=== PATIENT | female | born 1990 | race Caucasian/White ===

== ENCOUNTER 2023-08-01 19:40 | Inpatient (IN) | payer BC ==
[~2023-08-01] VITALS: Ht 165.1 cm; Wt 89.8 kg
[2023-08-01] MEDS ORDERED: MORPHINE SULFATE 4 MG/ML CPJ (NOT FOR IM USE) IV STA (19:56)
[2023-08-01] MEDS ORDERED: TETANUS, DIPHTHERIA, PERTUSSIS VAC/PF 0.5ML (>10YR OLD) IM ONE (20:00)
[2023-08-01] MEDS ORDERED: CEFAZOLIN 1000MG PREMIX 50 ML IV ONE (20:00)
[2023-08-01] MEDS ORDERED: SODIUM CHLORIDE 0.9% 1,000 ML IV ONE (20:00)
[2023-08-01] MEDS ORDERED: KETAMINE HCL 50 MG/ML 10ML IV ONE (20:00)
[2023-08-01] MEDS ORDERED: CEFAZOLIN 2,000 MG in DEXT 5% WATER 100 ML IV STA (21:00)
[2023-08-01 21:33] LABS: BASOPHILS % 0.2 % (0.0-2.0); EOSINOPHILS % 0.9 % (0.0-5.0); HEMATOCRIT. 40.2 % (36.0-48.0); HEMOGLOBIN. 13.9 g/dL (12.0-16.0); LYMPHOCYTES % 21.3 % (20.0-50.0); MEAN CORPUSCULAR HEMOGLOBIN 31.4 pg (28.0-32.0); MEAN CORPUSCULAR HGB CONC 34.6 g/dL (31.0-37.0); MEAN CORPUSCULAR VOLUME 90.7 fL (81.0-99.0); MEAN PLATELET VOLUME 8.5 fl (7.4-10.4); MONOCYTES % 8.5 % (2.0-8.0); NEUTROPHILS % 69.1 % (40.0-76.0); PLATELET 205 x1000/uL (130-400); RED BLOOD CELL COUNT 4.43 mill/uL (4.2-5.4); WHITE BLOOD COUNT 8.4 x1000/uL (4.5-11.0)
[2023-08-01 21:41] VITALS: O2SAT 100
[2023-08-01 21:43] LABS: CHLORIDE 110 mEq/L (98-107); INDEX HEMOLYSI 1 (1-3); INDEX ICTERIC 1 (1-4); INDEX LIPEMIC 1 (1-3); POTASSIUM 3.7 mEq/L (3.5-5.1); SODIUM 140 mEq/L (136-145)
[2023-08-01 21:44] LABS: HCG SCREEN NEGATIVE
[2023-08-01 21:49] LABS: ALANINE AMINOTRANSFERASE 30 IU/L (13-61); ALBUMIN 3.8 g/dL (3.4-5.0); ASPARTATE AMINOTRANSFERASE 14 IU/L (15-37); BILIRUBIN TOTAL 0.5 mg/dL (0.1-1.0); CALCIUM 8.5 mg/dL (8.5-10.1); CARBON DIOXIDE 24 mEq/L (21-32); CREATININE 0.8 mg/dL (0.6-1.3); GLUCOSE 101 mg/dL (70-105); PROTEIN TOTAL 7.7 g/dL (6.0-8.3); UREA NITROGEN BLOOD 15 mg/dL (7-21)
[2023-08-01] MEDS ORDERED: MORPHINE SULFATE 4 MG/ML CPJ (NOT FOR IM USE) IV PRN (22:45)
[2023-08-02] MEDS ORDERED: NALOXONE HCL 0.4MG/ML VIAL IV PRN (01:00)
[2023-08-02 01:10] VITALS: BP 113/76; PULSE 76; RESP 18; TEMP 98.1
[2023-08-02] MEDS: HYDROCODONE/ACETAMINOPHEN 10/325MG TABLET PO PRN (02:31)
[2023-08-02] MEDS ORDERED: MORPHINE SULFATE 2 MG/ML CPJ (NOT FOR IM USE) IV NR (11:45)
[2023-08-02] MEDS ORDERED: CEFAZOLIN SODIUM 1000MG/VIAL ONE (15:33)
[2023-08-02] MEDS ORDERED: MIDAZOLAM HCL 2 MG/2 ML VIAL ONE (15:33)
[2023-08-02] MEDS ORDERED: FENTANYL CITRATE/PF 50MCG/ML 2ML VIAL ONE (15:33)
[2023-08-02] MEDS ORDERED: PROPOFOL 200MG/20ML VIAL IV ONE (15:33)
[2023-08-02 16:00] VITALS: BP 108/76; PULSE 81; RESP 20; TEMP 97.7
[2023-08-02] MEDS ORDERED: VANCOMYCIN HCL 1 GM/VIAL ONE (16:06)
[2023-08-02] MEDS ORDERED: POLYMYXIN B SULFATE 500000 UNITS/VIAL ONE (16:06)
[2023-08-02] MEDS ORDERED: GENTAMICIN SULF 40MG/ML 2ML VIAL ONE (16:07)
[2023-08-02] MEDS ORDERED: LIDOCAINE HCL/EPINEPHRINE 1%-EPI 1:100,000 20 ML VIAL ONE (16:07)
[2023-08-02] MEDS ORDERED: BUPIVACAINE HCL/PF 0.5% (5MG/ML) 10ML ONE (16:07)
[2023-08-02] MEDS ORDERED: PHENYLEPHRINE HCL 10 MG/ML 1ML (IV VIAL) IV ONE (17:08)
[2023-08-02] MEDS: HYDROMORPHONE HCL/PF 2MG/ML CPJ IV PRN ×3 (20:13→20:40)
[2023-08-02] MEDS: CEFAZOLIN 2,000 MG in DEXT 5% WATER 100 ML IV SCH (21:00)
[2023-08-03] VITALS: BP 103/60; PULSE 84; RESP 17; TEMP 99.5
[2023-08-03 04:00] VITALS: BP 110/63; PULSE 86; RESP 17; TEMP 99.9
[2023-08-03] MEDS: CEFAZOLIN 2,000 MG in DEXT 5% WATER 100 ML IV SCH ×2 (05:00→12:18)
[2023-08-03 08:11] VITALS: BP 105/62; PULSE 80; RESP 18; TEMP 100.4
[2023-08-03] MEDS ORDERED: ASPIRIN 81MG TABLET PO SCH (09:00)
[2023-08-03] MEDS ORDERED: ASPI-1406 MT (10:17)
[2023-08-03] MEDS ORDERED: CEPH500C2 MT (10:17)
[2023-08-03] MEDS ORDERED: ACET-2708 MT (10:18)
[2023-08-03] MEDS: HYDROCODONE/ACETAMINOPHEN 10/325MG TABLET PO PRN ×2 (10:57→15:15)
[2023-08-03] MEDS ORDERED: HYDR-4001 MT (11:30)
[2023-08-03 12:30] VITALS: BP 113/55; PULSE 95; RESP 18; TEMP 98
[2023-08-03 17:07] VITALS: BP 135/73; PULSE 66; RESP 18; TEMP 98
[2023-08-03 17:09] VITALS: BP 100/50; PULSE 91; RESP 18; TEMP 98
== END 2023-08-03 15:24 | disposition home or self-care (01) | DRG 494 ==
LOC: ER 19:40 → 6WST 23:33
PROVIDERS: ADMIT Internal Medicine; ATTEND Internal Medicine
PROC: 0QSGXZZ Reposition Right Tibia, External Approach (ICD-10-PCS; principal; 2023-08-01)
PROC: 2W3QX1Z Immobilization of Right Lower Leg using Splint (ICD-10-PCS; 2023-08-01)
PROC: 0QSJXZZ Reposition Right Fibula, External Approach (ICD-10-PCS; 2023-08-01)
PROC: 0QSG04Z Reposition Right Tibia with Internal Fixation Device, Open Approach (ICD-10-PCS; 2023-08-02)
PROC: 0QSJ04Z Reposition Right Fibula with Internal Fixation Device, Open Approach (ICD-10-PCS; 2023-08-02)
DX: S82.851B Displaced trimalleolar fracture of right lower leg, initial encounter for open fracture type I or II (principal); Y93.89 Activity, other specified; Y92.89 Other specified places as the place of occurrence of the external cause; Y99.8 Other external cause status; V00.841A Fall from standing electric scooter, initial encounter
CPT/HCPCS: 36415; 73600; 73610; 73700; 76000; 80053; 84703; 85025; 86850; 86900; 90715; 97116; 97161; 97166; 99291; J0690; J1170; J1580; J2250; J2270; J2370; J2704; J3010; J3370; J3490; J7030; J7060; C1713